=== PATIENT | male | born 1990 ===

== ENCOUNTER 2018-03-28 02:37 | Emergency (ER) | payer OTHER ==
[2018-03-28 03:09] VITALS: RESP 16; O2SAT 97
[2018-03-28] MEDS ORDERED: Tdap Vaccine 0.5 ml Vial (10-64 yrs) IM ONE ×2 (03:18→03:33)
[2018-03-28] MEDS ORDERED: Tetanus/Diphtheria Toxoids 0.5 ml Syringe IM ONE (03:29)
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
[2018-03-28 05:59] VITALS: BP 101/63; PULSE 90; TEMP 98.2
--- NOTE | 2018-03-28 10:36 | CT ---
Date of service: 03/28/2018 PROCEDURE: CT HEAD WITHOUT CONTRAST. HISTORY: Trauma COMPARISON: None available. TECHNIQUE: Axial computed tomography images were obtained through the head/brain without intravenous contrast. Radiation dose: Total exam DLP = 760.52 mGy-cm. This CT exam was performed using one or more of the following dose reduction techniques: Automated exposure control, adjustment of the mA and/or kV according to patient size, and/or use of iterative reconstruction technique. FINDINGS: HEMORRHAGE: No acute parenchymal, subarachnoid or extra-axial hemorrhage. BRAIN: No evidence of large acute infarct. No obvious parenchymal nor extra-axial mass or collection seen on this noncontrast exam. Ventricular and sulcal size within range of normal for this patient's stated age. VENTRICLES: No obstructive hydrocephalus. CALVARIUM: No acute calvarial fractures. There are several metallic skin closure otilia reducing a left posterior superior parietal scalp laceration left with subjacent small to medium-sized scalp contusion. PARANASAL SINUSES: Unremarkable as visualized. No significant inflammatory changes. MASTOID AIR CELLS: Unremarkable as visualized. No inflammatory changes. OTHER FINDINGS: None. IMPRESSION: No acute intracranial hemorrhage. Status post reduction left posterior superior parietal scalp laceration with subjacent small to medium-sized scalp contusion .
== END 2018-03-28 05:55 | disposition home or self-care (01) ==
LOC: H.ER 02:37
DX: F10.129 Alcohol abuse with intoxication, unspecified (principal); S01.01XA Laceration without foreign body of scalp, initial encounter; W19.XXXA Unspecified fall, initial encounter; Y92.89 Other specified places as the place of occurrence of the external cause

== ENCOUNTER 2018-04-03 10:19 | Emergency (ER) | payer OTHER ==
[2018-04-03 10:23] VITALS: BP 132/72; PULSE 67; RESP 17; TEMP 98.4; O2SAT 99
--- NOTE | 2018-04-03 11:00 | ED PDOC ---
HPI: Wound Care - HPI Time Seen by Provider: 04/03/18 10:26 History Per: Patient Additional Complaint(s): Here for staple removal on scalp. Placed on 03/28/2018. Offers no complaints. Denies fever, pain, headache, discharge. Past Medical History Reviewed: Historical Data, Nursing Documentation, Vital Signs Vital Signs: Last Vital Signs Temp 98.4 F 04/03/18 10:22 Pulse 67 04/03/18 10:22 Resp 17 04/03/18 10:22 BP 132/72 04/03/18 10:22 Pulse Ox 99 04/03/18 10:22 - Surgical History Surgical History: Appendectomy - Family History Family History: States: Unknown Family Hx - Allergies Allergies/Adverse Reactions: Allergies Allergy/AdvReac Type Severity Reaction Status Date / Time No Known Allergies Allergy Verified 03/28/18 03:09 Review of Systems ROS Statement: Except As Marked, All Systems Reviewed And Found Negative Physical Exam - Physical Exam Appears: Positive for: Well, Non-toxic, No Acute Distress Head Exam: Positive for: NORMOCEPHALIC. Negative for: ATRAUMATIC, NORMAL INSPECTION ([address] on posterior L parietal scalp with scabbing noted but without surrounding erythema, discharge, or swelling) - ECG O2 Sat by Pulse Oximetry: 99 Procedure: Wound Repair - Time Performed Time Performed: 10:40 - Time Out Time Out: Side verified, Site verified, Patient ID confirmed - Procedure Procedure: Wound Repair: Staple removal; Scab was debrided then all 3 otilia removed - Consent Obtained Consent obtained: Emergent consent implied - Performed by Performed by: Mid-level Provider (Sunny) - Indications Indication(s):: Other (Staple removal) - Patient tolerated procedure Patient Tolerated Procedure:: Well Disposition - Clinical Impression Clinical Impression: Removal of otilia - Patient ED Disposition Is Patient to be Admitted: No - Disposition Referrals: [facility] [Outside] Disposition: Routine/Home Disposition Time: 10:45 Condition: STABLE Instructions: Staple Removal Print Language: FRISIAN
== END 2018-04-03 11:14 | disposition home or self-care (01) ==
LOC: H.ER 10:19
DX: Z48.02 Encounter for removal of sutures (principal)